=== PATIENT | female | born 1985 | race Caucasian/White ===

== ENCOUNTER 2025-01-27 05:53 | Inpatient (IN) | payer MEDICAID, SELFPAY ==
[2025-01-27] VITALS (13 sets, daily range): BP systolic 88–131; BP diastolic 60–89; PULSE 71–102; RESP 12–22; TEMP 36.5–37.2; O2SAT 94–100; BMI 27.6
--- NOTE | 2025-01-27 06:34 | PD.EDRME ---
Rapid Medical Screening Exam E Arrival date/time: 01/27/25 05:53 This is a 39-year-old female that comes into the emergency room with complaints of abdominal pain, nausea vomiting. Patient states she does not know if she is . Patient writhing in pain and room upon arrival. Patient denies past medical history. I have greeted and performed a focused initial assessment of this patient. Initial appropriate labs ordered at this time. A comprehensive ED assessment and evaluation of the patient and analysis of all test and completion of medical decision making process will be conducted by additional ED provider. Chief Complaint: Abdominal Pain Time Seen by Provider: 01/27/25 06:15 Vital signs: Vital Signs Temperature 98.3 F 01/27/25 06:03 Pulse Rate 93 01/27/25 06:03 Respiratory Rate 18 01/27/25 06:03 Blood Pressure 130/85 H 01/27/25 06:03 Pulse Oximetry (%) 98 01/27/25 06:03 Oxygen Delivery Method Room Air 01/27/25 06:03
--- NOTE | 2025-01-27 06:41 | PD.EDABDPN ---
ED Abdominal Pain RME/HPI General Chief Complaint: Abdominal Pain Stated complaint: ABD PAIN Time seen by provider: 01/27/25 06:15 Arrival date/time: 01/27/25 05:53 Limitations: no limitations RME / HPI RME / HPI narrative: 01/27/25 05:53 This is a 39-year-old female that comes into the emergency room with complaints of abdominal pain, nausea vomiting. Patient states she does not know if she is . Patient writhing in pain and room upon arrival. Patient denies past medical history. I have greeted and performed a focused initial assessment of this patient. Initial appropriate labs ordered at this time. A comprehensive ED assessment and evaluation of the patient and analysis of all test and completion of medical decision making process will be conducted by additional ED provider. DR. LELA AGUIAR ED EVALUATION 39 year old female with no stated medical history presents to the ED for evaluation of abdominal pain beginning at 02:00 AM today and remaining constant since. Described as sharp in sensation that is localized to the right lower quadrant, rating 10/10 in severity. Accompanied by nausea and vomiting. Reportedly was evaluated at [facility] shortly after onset this morning and had labs drawn. However, left against medical advise and came straight here. Patient states she may be . LMP was 3 weeks ago and abnormal for her, duration was 2 weeks. Additionally states she had missed her menses the month before that. . Denies fevers, chills, chest pain, cough, shortness of breath, diarrhea, constipation, or urinary symptoms. Related Data Previous Rx's ?Medication ?Instructions ?Recorded mupirocin calcium 2 % topical cream 1 applicatio topical TID #30 grams 06/06/19 hydrocodone 5 mg-acetaminophen 325 1 tab PO BID PRN pain #4 tabs 10/30/20 mg tablet ibuprofen 800 mg tablet 800 mg PO TID PRN pain #30 tabs 10/30/20 Allergies Allergy/AdvReac Type Severity Reaction Status Date / Time No Known Allergies Allergy Verified 01/27/25 05:55 Review of Systems Review of Systems Systems Reviewed: All systems reviewed, normal except as documented Past Medical History Past Medical History CARDIAC: Negative Congestive Heart Failure RESPIRATORY: Negative Chronic Obstructive Pulmonary Disease (COPD) or Asthma GENITOURINARY: Negative Renal Disease ENDOCRINE: Negative Diabetes Mellitus Type 1 or Diabetes Mellitus Type 2 HEMATOLOGIC: Negative Sickle Cell Disease OTHER HISTORY: Negative Blood Transfusions Social History SMOKING STATUS: Current every day smoker SUBSTANCE USE: does not use ED Exam General Limitations: Present no limitations General appearance: Present alert and other (appears to be in severe pain) Head Head exam: Present atraumatic Eye Eye exam: Present normal appearance, PERRL and EOMI ENT ENT exam: Present normal exam, normal oropharynx and mucous membranes moist Neck Neck exam: Present normal inspection, full ROM and trachea midline Chest Chest inspection: Present normal inspection and symmetric chest wall rise Respiratory Respiratory exam: Present normal lung sounds bilaterally Cardiovascular Cardiovascular exam: Present regular rate, normal rhythm and normal heart sounds Abdominal Exam Abdominal exam: Present soft, tenderness (severe tenderness to palpation in the right lower quadrant with guarding and rebound, no rigidity. ) and normal bowel sounds Extremities Exam Extremities exam: Present normal inspection and full ROM Back Exam Back exam: Present normal inspection and full ROM Neurological Exam Neurological exam: Present alert, oriented X3 and CN II-XII intact Psychiatric Psychiatric exam: Present normal affect and normal mood Skin Skin exam: Present warm, dry, intact and normal color Course Quality Measures none Orders Category Date Time Status CT Screening NOW Care 01/27/25 06:42 Active US OB <= 14 weeks fetus Stat Exams 01/27/25 07:32 Completed US OB transvaginal Stat Exams 01/27/25 08:36 Completed Beta HCG,Quantitative Stat Lab 01/27/25 07:27 Completed Blood Culture (Lab) Stat Lab 01/27/25 08:32 Ordered CBC Stat Lab 01/27/25 06:50 Completed Chlamydia/GC/TV - PCR Stat Lab 01/27/25 Ordered Comprehensive Metabolic Panel Stat Lab 01/27/25 06:50 Completed Drug Screen,Urine Stat Lab 01/27/25 08:01 Completed HCG,Qualitative Serum Stat Lab 01/27/25 06:50 Completed Lipase Stat Lab 01/27/25 06:50 Completed Type and Screen Stat Lab 01/27/25 08:32 Ordered Urinalysis, C/S if Indicated Stat Lab 01/27/25 08:00 Completed Acetaminophen Ivpb [Ofirmev Inj] Med 01/27/25 06:44 Discontinued 1,000 mg in 100 ml IV NOW HYDROmorphone INJ [Dilaudid Inj] Med 01/27/25 08:30 Active 0.5 mg IVP Q30MIN PRN Ondansetron Odt [Zofran Odt] Med 01/27/25 06:31 Discontinued 4 mg PO X1 ONE Piper/Tazo Inj [Zosyn Inj] 4.5 gm Med 01/27/25 08:32 Discontinued Sodium Chloride 0.9% (Pop) [NS 0.9% mini bag] 100 ml IV X1 Sodium Chloride 0.9% 1000 ml [Ns] 1,000 ml Med 01/27/25 06:44 Discontinued IV 999 mls/hr Sodium Chloride 0.9% 1000 ml [Ns] 1,000 ml Med 01/27/25 08:25 Discontinued IV 999 mls/hr fentaNYL INJ [Sublimaze Inj] Med 01/27/25 06:41 Discontinued 75 mcg IVP X1 ONE Reevaluation(s) Reevaluation #1: Patient reports she is still in severe pain, localized to the right lower quadrant. Patient has received multiple doses of pain medication. Per boiler testing technician, the patient was uncooperative with ultrasound due to pain. Discussed the importance of ultrasound to rule out an ectopic . Advise we would give additional pain medication and states she will cooperate. Time: 08:09 Reevaluation #2: Patient reports her pain improved after Diladudid Time: 09:45 Vital Signs Vital signs: Vital Signs Temperature 98.3 F 01/27/25 06:03 Pulse Rate 93 01/27/25 06:03 Respiratory Rate 18 01/27/25 06:03 Blood Pressure 130/85 H 01/27/25 06:03 Pulse Oximetry (%) 98 01/27/25 06:03 Oxygen Delivery Method Room Air 01/27/25 06:03 Pulse ox is 98% on room air which is adequate. Abdominal Pain MDM MDM Narrative MDM Narrative:: Lidia Garcia am scribing for and in the presence of Dr. Tompkins. 0827: I spoke with B[place] from ultrasound regarding ultrasound worksheet findings and reporting exam was limited 2/2 patient complaining of pain. Advised the patient will be given more pain medication and will be reordering 0844: I spoke with OBGYN Dr. Adler as noted below. 0909: I spoke with OBGYN Dr. Adler as noted below. 0952: OBGYN Dr. Adler reports she will be taking the patient to surgery. Patient data External records reviewed:: [facility] previous records (I reviewed ED visit on 04/21/2022 for pyelonephritis ) Clinical information provided by:: patient and spouse Social determinants that could affect healthcare access:: none Patient has the following chronic illnesses:: None reported How is presenting disease/condition affected by chronic disease/condition?: no chronic disease Evaluation data The following diagnostics were reviewed and interpreted by me:: lab results and radiology exam(s) Lab and/or radiology exams considered but not ordered:: None Interpretation Summary: Ordering Physician: Nick Tompkins MD Date of Service: 01/27/25 Procedure(s): US OB <= 14 weeks fetus Accession Number(s): [id number] cc: Romario Mukherjee MD; NO PRIMARY/FAMILY,PHYSICIAN; Nick Tompkins MD~ Examination: Complete OB ultrasound, less than 14 weeks, transabdominal Date and time of exam: January 27, 2025, 0740 hrs. Indications: Right-sided pelvic pain beginning 5 hours ago Technique: Obstetrical ultrasound images less than 14 weeks performed via transabdominal imaging Findings: Limited study, patient uncooperative Uterus 8.9 x 4.1 x 6.0 cm, endometrial stripe 1.3 cm No uterine mass or intrauterine gestation Ovaries obscured by bowel gas. Impression: Limited study. No uterine mass or intrauterine gestation. Ovaries obscured by bowel gas. Dictated By: Romario Mukherjee MD Signed By: <Electronically signed by Romario Mukherjee MD in OV> 01/27/25 0909 Ordering Physician: Nick Tompkins MD Date of Service: 01/27/25 Procedure(s): US OB transvaginal Accession Number(s): [id number] cc: Romario Mukherjee MD; NO PRIMARY/FAMILY,PHYSICIAN; Nick Tompkins MD~ Examination: OB Transvaginal ultrasound of the pelvis, complete Technique: Transvaginal sonographic images pelvis performed using tian scale imaging Exam date and time: January 27, 2025, 0846 hrs. Indications: Severe right-sided pelvic pain beginning 7 hours ago Findings: Uterus 8.5 cm endometrial stripe 0.7 cm, no intrauterine gestation Right ovary 4.8 x 3.5 x 4.5 cm arterial flow Right ectopic , pole corresponding to 6 weeks 4 days gestational age, no cardiac motion Left ovary obscured by bowel gas Impression: Positive for right ectopic . Dictated By: Romario Mukherjee MD Signed By: <Electronically signed by Romario Mukherjee MD in OV> 01/27/25 0916 Medications / Prescriptions Medications or Prescriptions considered but not ordered:: None Medication administrations:: Medication Administration History Hydromorphone HCl (Hydromorphone Inj 2 Mg/Ml Vial) 0.5 mg IVP Q30MIN PRN PRN Reason: PAIN Last Admin: 01/27/25 09:11 Dose: 0.5 mg Documented By: Admin: 01/27/25 08:30 Dose: 0.5 mg Documented By: CHARLIE Discontinued Medications Fentanyl Citrate (Fentanyl Cit Inj 50 Mcg/Ml Amp 2ml) 75 mcg IVP X1 ONE Stop: 01/27/25 06:42 Last Admin: 01/27/25 07:00 Dose: 75 mcg Documented By: CCT Acetaminophen (Ofirmev Inj) 1,000 mg in 100 mls @ 250 mls/hr IV NOW ONE Stop: 01/27/25 07:07 Last Infusion: 01/27/25 07:16 Dose: Infused Documented By: Admin: 01/27/25 06:58 Dose: 250 mls/hr Documented By: CCT Sodium Chloride (Ns) 1,000 mls @ 999 mls/hr IV .Q1H1M ONE Stop: 01/27/25 07:44 Last Infusion: 01/27/25 08:08 Dose: Infused Documented By: Admin: 01/27/25 07:00 Dose: 999 mls/hr Documented By: CCT Sodium Chloride (Ns) 1,000 mls @ 999 mls/hr IV .Q1H1M ONE Stop: 01/27/25 09:25 Last Admin: 01/27/25 08:31 Dose: 999 mls/hr Documented By: CHARLIE Piperacillin Sod/Tazobactam (Sod 4.5 gm/ Sodium Chloride) 100 mls @ 200 mls/hr IV X1 ONE Stop: 01/27/25 09:01 Last Admin: 01/27/25 09:12 Dose: 200 mls/hr Documented By: CHARLIE Ondansetron HCl (Ondansetron Odt 4 Mg Tabrap) 4 mg PO X1 ONE; Protocol Stop: 01/27/25 06:32 Last Admin: 01/27/25 06:58 Dose: 4 mg Documented By: CCT See above Consultations Consultation(s) initiated? (list below): Yes Consultation #1 (Physician, Specialty, Details): I spoke with OBGYN Dr. Adler. Discussed patients PMHx, HPI, ED course, exam findings, labs results. At this time pending US OB transvaginal pending. Time: :44 Consultation #2 (Physician, Specialty, Details): I spoke with OBGYN Dr. Adler. Discussed US images. Will come evaluate the patient in the ED. Time: : Consultation #3 (Physician, Specialty, Details): Dr. Mukherjee called to relay ultrasound findings. Reports there is an ectopic with free fluid, pole, no heart beat. Time: : Diagnosis Differential diagnosis abdominal pain: abdominal pain, acute appendicitis and other (ectopic ) Most likely diagnosis given after review of the tests above:: Ectopic Admission Indicated Admission indicated?: indicated Admission Request Was there a request for admission?: Yes Admission Attestation Admission request attestation: Discussed case with [] from Hospitalist service regarding admission. Discussed patients ED course, exam findings, labs, and radiology results. The Hospitalist [agrees,declines] to accept the patient for admission. Disposition Plan Disposition Plan: Admit Critical Care Time Critical Care Time Critical Care Time: Yes Total Critical Care Time (min.): 60 Attestation: The high probability of sudden, clinically significant deterioration in the patient's condition required the highest level of my preparedness to intervene urgently. The services I provided to this patient were to treat and/or prevent clinically significant deterioration. Services included the following: chart data review, reviewing nursing notes and/or old charts, documentation time, change consultant collaboration regarding findings and treatment options, medication orders and management, direct patient care, vital sign assessments and ordering, interpreting and reviewing diagnostic studies and lab tests. Aggregate critical care time includes only time during which I was engaged in work directly related to the patient's care, as described above, whether at bedside or elsewhere in the Emergency Department. It did not include time spent performing other reported procedures or the services of residents, students, nurses or physician assistants. Discharge Plan Plan Patient Disposition: Admit Acute Care w/in Hospital Discharge Disposition comment: OBGYN Prescriptions/Referrals Prescriptions/Med Rec: No Action ibuprofen 800 mg tablet 800 mg PO TID PRN (Reason: pain) Qty: 30 0RF hydrocodone-acetaminophen 5-325 mg tablet 1 tab PO BID MDD 10 PRN (Reason: pain) Qty: 4 0RF mupirocin calcium 2 % cream 1 applicatio TOPICAL TID Qty: 30 0RF Referrals: No Primary/Family,Physician [Primary Care Provider] - In 1 week Problem List Clinical Impression: Ectopic Patient/Caregiver Discharge Instructions Print Language: Lithuanian Stand Alone Forms: Shanti Award Info., Patient Portal Info Letter
[2025-01-27] MEDS: ONDANSETRON ODT 4 MG TABRAP PO (06:58)
[2025-01-27] MEDS: ACETAMINOPHEN IVPB 1,000 MG/100 ML VIAL 250 MG IV ×2 (06:58→18:28)
[2025-01-27] MEDS: SODIUM CHLORIDE 0.9% 1000 ML 1,000 ML 999 ML IV ×2 (07:00→08:31)
[2025-01-27] MEDS: fentaNYL CIT INJ 50 mCg/ML AMP 2ML 75 MCG IVP (07:00)
[2025-01-27 07:13] LABS: Basophils # (Auto) 0.0 Thou/mm3 (0.0-0.2); Basophils % (Auto) 0 % (0-2.5); Eosinophils # (Auto) 0.0 Thou/mm3 (0.0-0.5); Eosinophils % (Auto) 0 % (0-10); Hematocrit 34.8 % (36.0-46.0); Hemoglobin 12.3 g/dL (12.0-16.0); Immature Granulocytes Auto 0.06 Thou/mm3 (0.00-0.00); Lymphocytes # (Auto) 0.8 Thou/mm3 (1.0-4.8); Lymphocytes % (Auto) 6 % (10-50); Mean Corpuscular HGB Conc 35.3 g/dl (31.0-37.0); Mean Corpuscular Hemoglobin 33.2 pg (25.0-35.0); Mean Corpuscular Volume 94 fL (80-100); Monocytes # (Auto) 0.3 Thou/mm3 (0.0-0.8); Monocytes % (Auto) 2 % (0-12); Neutrophils # (Auto) 13.3 Thou/mm3 (1.8-7.7); Neutrophils % (Auto) 91 % (37-80); Nucleated Red Blood Cell # 0.00 Thou/mm3 (0.00-0.00); Nucleated Red Blood Cell % 0 /100 WBC (0); Platelet Count 218 Thou/mm3 (140-440); RDW Standard Deviation 44.1 fL (36.4-46.3); Red Blood Count 3.71 Miln/mm3 (4.00-5.20); White Blood Count 14.5 Thou/mm3 (3.6-11.0)
[2025-01-27 07:23] LABS: HCG,Qualitative Serum Positive
[2025-01-27 07:28] LABS: Alanine Aminotransferase 20 U/L (10-49); Albumin, Serum 4.6 gm/dL (3.5-5.0); Albumin/Globulin Ratio 1.7 (1.2-2.2); Alkaline Phosphatase 57 U/L (46-116); Anion Gap 12 (7-16); Aspartate Amino Transferase 21 U/L (0-34); BUN/Creatinine Ratio 12 Ratio (12-20); Bilirubin,Total 1.3 mg/dL (0.3-1.2); Blood Urea Nitrogen 16 mg/dL (9-23); Calcium 9.7 mg/dL (8.3-10.6); Calcium (Corrected) 9.7 mg/dL (8.5-10.1); Carbon Dioxide 23.5 mMol/L (20.0-31.0); Chloride 107 mMol/L (98-107); Creatinine (Component) 1.3 mg/dL (0.6-1.3); Globulin 2.7 gm/dL (2.3-3.5); Glucose 126 mg/dL (74-106); Lipase 23 U/L (12-53); Osmolality,Calculated 286 (275-295); Potassium 3.6 mMol/L (3.4-5.1); Sodium 142 mMol/L (136-145); Total Protein 7.3 gm/dL (5.7-8.2); eGFR 54 See Note
--- NOTE | 2025-01-27 07:28 | PC.NURSE ---
Called lab to add Quantitative HCG to labs, per Dr. Tompkins.
--- NOTE | 2025-01-27 07:32 | XR_ITS ---
Examination: Complete OB ultrasound, less than 14 weeks, transabdominal Date and time of exam: January 27, 2025, 0740 hrs. Indications: Right-sided pelvic pain beginning 5 hours ago Technique: Obstetrical ultrasound images less than 14 weeks performed via transabdominal imaging Findings: Limited study, patient uncooperative Uterus 8.9 x 4.1 x 6.0 cm, endometrial stripe 1.3 cm No uterine mass or intrauterine gestation Ovaries obscured by bowel gas. Impression: Limited study. No uterine mass or intrauterine gestation. Ovaries obscured by bowel gas.
[2025-01-27 08:29] LABS: Collection Type, Urine Voided
[2025-01-27] MEDS: HYDROmorphone INJ 2 MG/ML VIAL 0.5 MG IVP ×4 (08:30→12:08)
[2025-01-27 08:33] LABS: Beta HCG,Quantitative 5920 mIU/mL (<5.0)
--- NOTE | 2025-01-27 08:36 | XR_ITS ---
Examination: OB Transvaginal ultrasound of the pelvis, complete Technique: Transvaginal sonographic images pelvis performed using tian scale imaging Exam date and time: January 27, 2025, 0846 hrs. Indications: Severe right-sided pelvic pain beginning 7 hours ago Findings: Uterus 8.5 cm endometrial stripe 0.7 cm, no intrauterine gestation Right ovary 4.8 x 3.5 x 4.5 cm arterial flow Right ectopic , pole corresponding to 6 weeks 4 days gestational age, no cardiac motion Left ovary obscured by bowel gas Impression: Positive for right ectopic .
[2025-01-27 08:47] LABS: Bacteria,Urine Rare; Bilirubin,Urine Negative (Negative); Blood,Urine 3+ (Negative); Culture Indicated,Urine Contaminated; Glucose, Urine Negative (Negative); Ketones,Urine 2+ (Negative); Leukocyte Esterase,Urine Positive (Negative); Nitrite,Urine Positive (Negative); PH,Urine 8.5 (5.0-7.0); Protein,Urine 1+ (Neg - Trace); RBC,Urine 12 /hpf (0-3); Specific Gravity,Urine 1.025 (1.001-1.035); Squamous Epithelial Cell,Urine 14 /hpf (0-5); Urobilinogen,Urine Negative mg/dL (0.0-1.0); WBC,Urine 48 /hpf (0-5)
[2025-01-27 08:50] LABS: Clarity,Urine Turbid (Clear/Hazy); Color,Urine Yellow (Lt Yel-Yel)
[2025-01-27 09:12] LABS: Amphetamine/Methamp Scrn,U Positive (Negative); Barbiturate Screen,Urine Negative (Negative); Benzodiazepines Screen,Urine Negative (Negative); Benzoylecgonine Screen, Ur Negative (Negative); Fentanyl Screen,Urine Positive (Negative); Opiate Screen,Urine Negative (Negative); THC Screen,Urine Negative (Negative)
[2025-01-27] MEDS: PIPER/TAZO INJ 4.5 GM in SODIUM CHLORIDE 0.9% (POP) 100 ML IV (09:12)
--- NOTE | 2025-01-27 10:01 | PD.GYNHP ---
Documentation for date of: 01/27/25 DATA ANALYTICS DEVELOPER - HPI History of Present Illness Reason for admission: pelvic pain History of present illness: Ms. LEONE is a 39 year old female P4 and did not know she was , she came with onset of severe right lower quadrant pain starting at 2 AM this morning to the emergency room. Beta-hCG quant is 5920 and no intrauterine is seen in the ultrasound vaginal, there is possibility of some free fluid around the uterus, the clinical picture and objective findings are consistent with the diagnosis of an ectopic Patient states her last LMP was about 3 weeks ago which lasted about 2 weeks but before that she had missed a period for a month She is not using any contraception She does have a history of chlamydia or gonorrhea about few years ago She does have history of using methamphetamine last used 1 day ago She does smoke about a pack a day she last ate a meal before 2 AM on 01/27/2025 She denies any vaginal bleeding She is passing gas but but does report some nausea and threw up yesterday Denies use of marijuana Review of Systems Review of Systems Systems Reviewed: All systems reviewed, normal except as documented Past Medical History Past Medical History REPRODUCTIVE: Positive Gonorrhea (may be or chlamydia in the past) Family History OTHER FAMILY HX: does not remember Surgical History OTHER SURGICAL HX: denies Social History SMOKING STATUS: Light (< 1 pack/day) SUBSTANCE USE: methamphetamine (used yesterday) Meds Home Medications and Allergies Allergies Allergy/AdvReac Type Severity Reaction Status Date / Time No Known Allergies Allergy Verified 01/27/25 05:55 Exam - DATA ANALYTICS DEVELOPER Vital Signs Temp Pulse Resp BP Pulse Ox O2 Del Method 98.5 F 75 22 H 123/89 H 100 Room Air 01/27/25 08:31 01/27/25 08:31 01/27/25 08:31 01/27/25 08:31 01/27/25 08:31 01/27/25 08:31 Narrative Exam Patient is alert oriented she feels thirsty, she was able to comprehend my explanation for her symptoms and also understand the ultrasound findings as I explained them to her She is alert x 3 oriented, respiratory rate is 22 chest clear, heart rate of 75 Abdomen minimal tenderness in right lower quadrant no guarding or rebound, bili patient did get some pain medication IV so these findings may be altered due to the pain medication Bowel sounds are present Pelvic exam is deferred to the OR per patient's request Constitutional Constitutional: mild distress Routine Respiratory Exam Respiratory: Present chest non-tender, lungs clear, normal breath sounds and CTA bilaterally Routine Cardiovascular Exam Cardiovascular: Present RRR Routine Abdominal Exam Abdominal: Present soft, normoactive bowel sounds and tenderness Comments: mild RLQ, no guarding or rebound Routine Extremities Exam Extremities: Present full ROM, pulses intact and normal capillary refill Routine Skin Exam Skin: Present intact and normal turgor Routine Neurological Exam Neurological: Present alert, oriented X3, normal reflexes and normal speech Routine Psychiatric Exam Psychiatric: Present normal affect and cooperative DATA ANALYTICS DEVELOPER - Results Labs 01/27/25 06:50 01/27/25 06:50 Labs: Short CBC 01/27/25 Range/Units 06:50 WBC 14.5 H (3.6-11.0) Thou/mm3 Hgb 12.3 (12.0-16.0) g/dL Hct 34.8 L (36.0-46.0) % Plt Count 218 (140-440) Thou/mm3 BMP 01/27/25 06:50 Sodium 142 Potassium 3.6 Chloride 107 Carbon Dioxide 23.5 BUN 16 Creatinine 1.3 Glucose 126 H Calcium 9.7 Liver Function 01/27/25 Range/Units 06:50 Total Bilirubin 1.3 H (0.3-1.2) mg/dL AST 21 (0-34) U/L ALT 20 (10-49) U/L Alkaline Phosphatase 57 (46-116) U/L Albumin 4.6 (3.5-5.0) gm/dL Urine 01/27/25 Range/Units 08:00 Urine Color Yellow (Lt Yel-Yel) Urine Clarity Turbid A (Clear/Hazy) Urine pH 8.5 H (5.0-7.0) Ur Specific [place] 1.025 (1.001-1.035) Urine Protein 1+ A (Neg - Trace) Urine Glucose (UA) Negative (Negative) Impressions Impression: [facility] [address] [place] [address] [facility] Report Signed Patient: CHARLINE LEONE Record#: [id number] Birthdate: 1985 Age/Sex: 39 / F Location: [facility] Attending Dr: Ordering Physician: Nick Tompkins MD Date of Service: 01/27/25 Procedure(s): US OB transvaginal Accession Number(s): [id number] cc: Romario Mukherjee MD; NO PRIMARY/FAMILY,PHYSICIAN; Nick Tompkins MD~ Examination: OB Transvaginal ultrasound of the pelvis, complete Technique: Transvaginal sonographic images pelvis performed using tian scale imaging Exam date and time: January 27, 2025, 0846 hrs. Indications: Severe right-sided pelvic pain beginning 7 hours ago Findings: Uterus 8.5 cm endometrial stripe 0.7 cm, no intrauterine gestation Right ovary 4.8 x 3.5 x 4.5 cm arterial flow Right ectopic , pole corresponding to 6 weeks 4 days gestational age, no cardiac motion Left ovary obscured by bowel gas Impression: Positive for right ectopic . Dictated By: Romario Mukherjee MD Signed By: <Electronically signed by Romario Mukherjee MD in OV> 01/27/25915 DD/ 4 TD/TT: 01/27/25914 Want Ad Supervisor: CRYSTAL Assessment and Plan Assessment and plan (1) Ectopic : Status: Acute (2) Substance abuse affecting , antepartum: Status: Acute (3) Abdominal pain, RLQ: Status: Acute (4) Smoker: Status: Acute Additional Assessment & Plan Additional Plan: To take the patient to the operating room for laparoscopy possible laparotomy risk benefits and options of surgery explained her risk to include risk of infection bleeding possible injury to the surrounding organs in the abdomen including intestines bladder uterus tubes ovaries ureter and not limited to these could be nerves vessels possible need for blood transfusion if there is excessive bleeding and also sometimes cannot really find the ectopic which may be seen on imaging but an actual surgery cannot find the location and in that case we will make an effort to try to find a location not found she may need end up needing medication like methotrexate she does not have a doctor with whom she can follow-up but that would be the only option at that point in case there is a complication or cannot see properly on laparoscopy we may need to do a laparotomy all the questions from the patient and the family her significant on the were answered and patient to be kept n.p.o. and will be taken to the OR as soon as it is arranged. Quality Measures Quality Measures none
--- NOTE | 2025-01-27 11:46 | PC.NURSE ---
at bedside explained to pt all risks and benefits of the surgery r/t ectopic pt verbalized understanding.
--- NOTE | 2025-01-27 12:24 | PC.NURSE ---
Report called to OR and pt was transferred to OR
--- NOTE | 2025-01-27 14:38 | ESOP_ITS ---
Operative Note - [employer]DER Procedure Date of procedure: 01/27/25 Procedure Performed: diagnostic laparoscopy and minilaparotomy with R salpingectomy with removal of R ectopic Indication: R ectopic Cornual Pre-Op diagnosis: RLQ pain and R ectopic Post-Op diagnosis: R cornual ectopic / just started rupturing intraoperatively Size 4x4 cm and no hemoperitoneum Anesthesia type: General Procedure description: a diagnostic laparoscopy was done . Patient was brought to the OR after an informed consent. She was in dorsolithotomy position modified for laparoscopy. She received general anesthesia. She was prepped and draped in the usual sterile fashion. A pelvic exam was done after a timeout. Show the uterus deviated to the left side cervix vagina were normal there was no vaginal bleeding. Patient had had her bladder straight catheterized. A kroner's intrauterine manipulator was placed through the cervical os into the uterine cavity balloon inflated left in situ, this is done after placing a speculum in the posterior vagina and holding the anterior lip of the cervix with a single-tooth tenaculum. Gloves are then changed. And then with a 5 mm incision on the umbilicus , a direct trocar entry is made with the laparoscope into the abdomen without any trauma the trocars removed the laparoscope inserted into the trocar survey of the anatomy is done there is lot of bowel and for some reason even though the pressure in the laparoscopic machine is showing 15 mm the there is not adequate distention to perform's laparoscopic surgery adequately however we are able to see both the right tube and the ovaries and on the right tube in the cornual there is this big blue bulbous looking ectopic which is not ruptured its 4 x 4 cm right at the cornual and so decision is to made to proceed with open mini laparotomy as laparoscopy will not be possible due to improper distention of the peritoneal cavity. The umbilical incision is closed with 4-0 Monocryl after removing the trocar and deflating the abdomen. A fanning style 2-1/2 inch incision is made and carried down from skin subcutaneous tissue to rectus sheath which is incised transversely from underlying muscles peritoneal cavity entered atraumatically With the help of the kroner's intrauterine manipulator right fallopian tube with the ectopic is brought into the surgical incision opening and the tube with ectopic is this starts rupturing right before eyes clamps were placed on both ends of the ectopic and to contain the bleeding and the ectopic material is scooped out from the ruptured ectopic and this is to allow for proper removal of the tube because otherwise the tube is very thick and proper sealing and hemostasis would be difficult with Endo seal. Once that is done 0-0 Vicryl is used to hemostatically control the bleeding on the uterine and and then the tube was removed with the help of the Endo seal all the way till the fimbria as this tube is not salvageable. The defect from the ectopic extends onto the lateral end of the uterine fundus and that is closed using 0 Vicryl suture as well hemostasis is obtained. The left tube and ovary are normal the right ovary is normal looking as well. Procedure then completed. Abdomen closed with peritoneal closure and fascial closure done with 0 Vicryl. Subcutaneous tissue with 3-0 plain and skin approximated with 4-0 Monocryl. Prineo dressing applied. Kroner's intrauterine manipulator is deflated and removed. Counts are correct Patient removed to PACU in stable condition. Specimen: right tube (with ectopic ) Estimated blood loss (ml): 30 Findings: R Cornual ectopic , barely started rupturing intraoperatively Complications: none Narrative: see procedure Surgical staff Operation Date: 01/27/25 14:15 Case Staff Anesthesiologist: Harshal Lima RNspanish interpreter/translator: Paris Bennett Diagnosis Discharge Diagnosis (1) S/P laparotomy: Status: Acute Problem details: s/p laparotomy and R salpingectomy for R cornual ectopic Problem List Completed Was Problem List Reviewed/Reconciled?: Yes
--- NOTE | 2025-01-27 14:42 | SUR.PHASEI ---
1412 patient is s/p laparoscopic, converted to open ectopic preganancy surgery, prineo x2 to abdomen, no bleeding noted, report received from John MORALES and Dr. Lima. 1442 patient completed recovery, waiting for med surg bded assignment.
--- NOTE | 2025-01-27 15:25 | SUR.PHASEI ---
1525 patient is awake, alert, breathing unlabored, lower abdomen prineo site had small amount of oozing, Dr. Adler was notified, dressing with ABD Pad, 4x4 gauze and medipore applied, no active bleeding noted at this time, report given to Jaqueline MORALES, patient transferred to room 382. Dentures placed back on patient, all belongings sent with patient including purse, cellphone and cleaning custodian.
[2025-01-27] MEDS: ceFAZolin/D5W 1 GM IVPB 1 GM/50 ML BAG IV (16:16)
[2025-01-27] MEDS: DEXTROSE 5%-0.45% NS 1,000 ML 100 ML IV (16:16)
[2025-01-27] MEDS: KETOROLAC INJ 30 MG/ML VIAL 15 MG IVP (17:57)
[2025-01-27] MEDS: DOCUSATE SOD 100 MG CAPSULE PO (21:01)
[2025-01-27] MEDS: DOXYCYCLINE INJ 100 MG in SODIUM CHLORIDE 0.9% (POP) 100 ML IV (21:01)
[2025-01-28] VITALS (9 sets, daily range): BP systolic 82–97; BP diastolic 52–70; PULSE 83–105; RESP 16–99; TEMP 36.2–37.2; O2SAT 93–99
[2025-01-28] MEDS: ACETAMINOPHEN IVPB 1,000 MG/100 ML VIAL 250 MG IV (00:34)
[2025-01-28] MEDS: SODIUM CHLORIDE 0.9% 1000 ML 1,000 ML 999 ML IV (04:27)
--- NOTE | 2025-01-28 04:30 | PC.NURSE ---
Patient blood pressure at 67/43. Dr. Adler called via phone and ordered a 1L NS bolus and a stat CBC. Patient placed in trendelenburg, will recheck blood pressure after fluid bolus.
[2025-01-28 05:41] LABS: Specific Gravity,Urine <= 1.005 (1.001-1.035)
[2025-01-28 05:46] LABS: Basophils # (Auto) 0.0 Thou/mm3 (0.0-0.2); Basophils % (Auto) 0 % (0-2.5); Eosinophils # (Auto) 0.0 Thou/mm3 (0.0-0.5); Eosinophils % (Auto) 0 % (0-10); Hematocrit 29.8 % (36.0-46.0); Hemoglobin 10.1 g/dL (12.0-16.0); Immature Granulocytes Auto 0.20 Thou/mm3 (0.00-0.00); Lymphocytes # (Auto) 0.6 Thou/mm3 (1.0-4.8); Lymphocytes % (Auto) 4 % (10-50); Mean Corpuscular HGB Conc 33.9 g/dl (31.0-37.0); Mean Corpuscular Hemoglobin 34.0 pg (25.0-35.0); Mean Corpuscular Volume 100 fL (80-100); Monocytes # (Auto) 0.5 Thou/mm3 (0.0-0.8); Monocytes % (Auto) 4 % (0-12); Neutrophils # (Auto) 12.6 Thou/mm3 (1.8-7.7); Neutrophils % (Auto) 91 % (37-80); Nucleated Red Blood Cell # 0.00 Thou/mm3 (0.00-0.00); Nucleated Red Blood Cell % 0 /100 WBC (0); Platelet Count 100 Thou/mm3 (140-440); RDW Standard Deviation 48.8 fL (36.4-46.3); Red Blood Count 2.97 Miln/mm3 (4.00-5.20); White Blood Count 13.9 Thou/mm3 (3.6-11.0)
[2025-01-28] MEDS: DEXTROSE 5%-0.45% NS 1,000 ML 100 ML IV (05:56)
--- NOTE | 2025-01-28 06:51 | PD.GYNPROG ---
Documentation for date of: 01/28/25 INVENTORY CONTROL/SHIPPING RECEIVING Subjective Subjective Interval history: Ms. LEONE is a 39 year old female P4 and did not know she was , she came with onset of severe right lower quadrant pain starting at 2 AM this morning to the emergency room. Beta-hCG quant is 5920 and no intrauterine is seen in the ultrasound vaginal, there is possibility of some free fluid around the uterus, the clinical picture and objective findings are consistent with the diagnosis of an ectopic Patient states her last LMP was about 3 weeks ago which lasted about 2 weeks but before that she had missed a period for a month She is not using any contraception She does have a history of chlamydia or gonorrhea about few years ago She does have history of using methamphetamine last used 1 day ago She does smoke about a pack a day she last ate a meal before 2 AM on 01/27/2025 She denies any vaginal bleeding She is passing gas but but does report some nausea and threw up yesterday Denies use of marijuana she was fine after her surgery yesterday but this morning after going to the rest room she had low BP and HR of 105 Her stat Hb is 10-1 and platelets are decreased to 100 She did have a cornual ectopic and that site of the ectopic thereby was in a very vascular area and so possibility of a bleed from that area is possible . Also it is possible she had a vasovagal attack after going to the rest room or ?withdrawal Exam Vital Signs Temp Pulse Resp BP Pulse Ox O2 Del Method 98.9 F 105 H 16 88/70 L 98 Room Air 01/28/25 04:00 01/28/25 06:38 01/28/25 06:38 01/28/25 05:30 01/28/25 04:00 01/28/25 04:00 Narrative Exam I examined the patient she is alertx3 , not diaphoretic and did not receive Toradol or Dilaudid per the RN oriented and I discussed with her the possibility of the bleed from the surgical site and maybe need to go back to OR Her BP is improving Plan is to keep her NPO and also repeat CBC at 9 am and a stat pelvic US is ordered . One unit Type and cross is ordered as well Routine Respiratory Exam Respiratory: Present chest non-tender, lungs clear, normal breath sounds, no resp distress and CTA bilaterally Routine Cardiovascular Exam Cardiovascular: Present RRR and tachycardia Routine Abdominal Exam Abdominal: Present soft and normoactive bowel sounds Comments: dressing is dry and she has no TTP Routine Skin Exam Skin: Present intact and normal turgor Routine Neurological Exam Neurological: Present alert, oriented X3 and normal speech Urinary Catheter Management Cath placed during this visit: no INVENTORY CONTROL/SHIPPING RECEIVING - PN: Obj Data Labs 01/28/25 05:06 01/27/25 06:50 Labs: Laboratory Results - last 24 hr 01/27/25 01/27/25 01/27/25 06:50 07:27 08:00 WBC 14.5 H RBC 3.71 L Hgb 12.3 Hct 34.8 L MCV 94 MCH 33.2 MCHC 35.3 RDW Std Deviation 44.1 Plt Count 218 Neut % (Auto) 91 H Lymph % (Auto) 6 L [place] % (Auto) 2 Eos % (Auto) 0 Baso % (Auto) 0 Neut # (Auto) 13.3 H Lymph # (Auto) 0.8 L [place] # (Auto) 0.3 Eos # (Auto) 0.0 Baso # (Auto) 0.0 Immature Gran # (Auto) 0.06 H Absolute Nucleated RBC 0.00 Immature Gran % 0 Nucleated RBC % 0 Sodium 142 Potassium 3.6 Chloride 107 Carbon Dioxide 23.5 Anion Gap 12 BUN 16 Creatinine 1.3 Estim Creat Clear Calc Not Performed. eGFR 54 L BUN/Creatinine Ratio 12 Glucose 126 H Calculated Osmolality 286 Calcium 9.7 Corrected Calcium 9.7 Total Bilirubin 1.3 H AST 21 ALT 20 Alkaline Phosphatase 57 Total Protein 7.3 Albumin 4.6 Globulin 2.7 Albumin/Globulin Ratio 1.7 Lipase 23 HCG, Qual Positive Beta HCG, Quant 5920 Ur Collection Type Voided Urine Color Yellow Urine Clarity Turbid A Urine pH 8.5 H Ur Specific [place] 1.025 Urine Protein 1+ A Urine Glucose (UA) Negative Urine Ketones 2+ A Urine Blood 3+ A Urine Nitrite Positive Urine Bilirubin Negative Urine Urobilinogen (Auto) Negative Ur Leukocyte Esterase Positive Urine RBC 12 H Urine WBC 48 H Ur Squamous Epith Cells 14 H Urine Bacteria Rare Ur Culture Indicated? Contaminated Urine Opiates Screen Urine Fentanyl Screen Ur Barbiturates Screen U Amphetamin/Meth Scrn U Benzodiazepines Scrn U Cocaine Metab Screen U Marijuana (THC) Screen Blood Type Antibody Screen Blood Bank Wristband ID 01/27/25 01/27/25 01/28/25 08:01 09:36 05:06 WBC 13.9 H RBC 2.97 L Hgb 10.1 L D Hct 29.8 L MCV 100 MCH 34.0 MCHC 33.9 RDW Std Deviation 48.8 H Plt Count 100 L D Neut % (Auto) 91 H Lymph % (Auto) 4 L [place] % (Auto) 4 Eos % (Auto) 0 Baso % (Auto) 0 Neut # (Auto) 12.6 H Lymph # (Auto) 0.6 L [place] # (Auto) 0.5 Eos # (Auto) 0.0 Baso # (Auto) 0.0 Immature Gran # (Auto) 0.20 H Absolute Nucleated RBC 0.00 Immature Gran % 1 H Nucleated RBC % 0 Sodium Potassium Chloride Carbon Dioxide Anion Gap BUN Creatinine Estim Creat Clear Calc eGFR BUN/Creatinine Ratio Glucose Calculated Osmolality Calcium Corrected Calcium Total Bilirubin AST ALT Alkaline Phosphatase Total Protein Albumin Globulin Albumin/Globulin Ratio Lipase HCG, Qual Beta HCG, Quant Ur Collection Type Urine Color Urine Clarity Urine pH Ur Specific [place] Urine Protein Urine Glucose (UA) Urine Ketones Urine Blood Urine Nitrite Urine Bilirubin Urine Urobilinogen (Auto) Ur Leukocyte Esterase Urine RBC Urine WBC Ur Squamous Epith Cells Urine Bacteria Ur Culture Indicated? Urine Opiates Screen Negative Urine Fentanyl Screen Positive A Ur Barbiturates Screen Negative U Amphetamin/Meth Scrn Positive A U Benzodiazepines Scrn Negative U Cocaine Metab Screen Negative U Marijuana (THC) Screen Negative Blood Type O Positive Antibody Screen NEGATIVE Blood Bank Wristband ID Yes 01/28/25 05:14 WBC RBC Hgb Hct MCV MCH MCHC RDW Std Deviation Plt Count Neut % (Auto) Lymph % (Auto) [place] % (Auto) Eos % (Auto) Baso % (Auto) Neut # (Auto) Lymph # (Auto) [place] # (Auto) Eos # (Auto) Baso # (Auto) Immature Gran # (Auto) Absolute Nucleated RBC Immature Gran % Nucleated RBC % Sodium Potassium Chloride Carbon Dioxide Anion Gap BUN Creatinine Estim Creat Clear Calc eGFR BUN/Creatinine Ratio Glucose Calculated Osmolality Calcium Corrected Calcium Total Bilirubin AST ALT Alkaline Phosphatase Total Protein Albumin Globulin Albumin/Globulin Ratio Lipase HCG, Qual Beta HCG, Quant Ur Collection Type Urine Color Urine Clarity Urine pH Ur Specific [place] <= 1.005 Urine Protein Urine Glucose (UA) Urine Ketones Urine Blood Urine Nitrite Urine Bilirubin Urine Urobilinogen (Auto) Ur Leukocyte Esterase Urine RBC Urine WBC Ur Squamous Epith Cells Urine Bacteria Ur Culture Indicated? Urine Opiates Screen Urine Fentanyl Screen Ur Barbiturates Screen U Amphetamin/Meth Scrn U Benzodiazepines Scrn U Cocaine Metab Screen U Marijuana (THC) Screen Blood Type Antibody Screen Blood Bank Wristband ID Impressions Impression: Post op s/p laparotomy for R cornual ectopic and now with low ABG Interpretation Additional comments: ordered anothe CBC at 9 am and also a pelvic US stat now INVENTORY CONTROL/SHIPPING RECEIVING - A/P Assessment and plan (1) S/P laparotomy: Problem details: s/p laparotomy and R salpingectomy for R cornual ectopic Status: Acute Assessment and plan: concern for low BP and Tachycardia and postop bleeding Will be watching closely . Patient is NPO now and waiting on second CBC and also pelvic Ultrasound Postoperative Procedures: Procedures Operation Date: 01/27/25 14:15 Actual Procedure Side Surgeon p LAPAROTOMY Sallie Adler MD Time Spent With Patient Time: Total time spent is greater than 50% in coordination of care (as documented) at patient's floor/unit and/or counseling patient:
--- NOTE | 2025-01-28 08:58 | XR_ITS ---
Examination: CT abdomen and pelvis without contrast. Coronal 3-D reconstructions. Sagittal 2-D reconstructions. Date and time of exam:January 28, 2025 1156 hours Comparison April 21, 2022 INDICATIONS: Post ectopic surgery July 31, 2024 with onset pelvic pain beginning 2 days ago CTDI: vol (mGy): 7.27 DLP: (mGycm): 412 Technique: Axial images of the abdomen have been obtained, 3 mm slice thickness Intravenous contrast material has not been administered. Low dose protocols were performed. One or more of the following dose reduction techniques were used; automated exposure control, adjustment of the mA and/or KV according to patient size, use of iterative reconstruction technique. Findings: Right base pneumonia with small right pleural effusion Pneumoperitoneum No focal liver or splenic lesion. No gallstones. No pancreatic or adrenal mass. 2 mm lower pole right renal calculus Moderate right hydronephrosis, 3 mm distal right ureterovesical junction calculus No bowel obstruction No pericecal inflammatory change Anteverted uterus Mild free fluid in the pelvis Urinary bladder intact IMPRESSION: Moderate right hydronephrosis secondary to 3 mm distal right ureterovesical junction calculus Mild free fluid in the pelvis, consider pelvic sonography follow-up
--- NOTE | 2025-01-28 11:52 | PC.NURSE ---
Patient to CT via w/c in stable condition.
--- NOTE | 2025-01-28 12:08 | PC.NURSE ---
Pt back from CT to room via w/c in stable condition.
[2025-01-28] MEDS: PANTOPRAZOLE 40 MG TABLET PO (14:17)
[2025-01-28] MEDS: AZITHROMYCIN 250 MG TABLET 500 MG PO (14:17)
[2025-01-28] MEDS: DOCUSATE SOD 100 MG CAPSULE PO (14:17)
[2025-01-28] MEDS: KETOROLAC INJ 30 MG/ML VIAL IVP (14:18)
[2025-01-28] MEDS: LACTULOSE SYRUP 20 GM/30 ML UDC 10 GM PO ×2 (14:18→21:54)
--- NOTE | 2025-01-28 17:04 | PC.NURSE ---
Patient ambulating hallway with daughter at side.
--- NOTE | 2025-01-28 21:48 | ESPR_ITS ---
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 There was initial concern about ongoing intraperitoneal bleeding, but her blood counts have remained stable with a hemoglobin of 10.1. The patient underwent a CT scan earlier today which showed mild free fluid in the pelvis but no evidence of active bleeding. The scan also revealed a right base pneumonia with a small right pleural effusion, pneumoperitoneum, and mild right hydronephrosis with a 3-millimeter distal right ureter vesicular calculus. Dr. Adler, who performed the surgery, was concerned about potential ongoing bleeding due to the ectopic 's location at the highly vascular junction of the fallopian tube and uterus. However, the surgical repair appears to be intact with no signs of continued bleeding. The patient has not yet had a bowel movement but has been able to urinate. She reports passing gas, which is a positive sign for returning bowel function. Mela does not currently have an OB doctor in [facility] and will need follow-up care to monitor her healing progress and hormone levels until they return to zero. The surgical incision appears to be healing well, with a preneurotape dressing in place to prevent infection. ROS: Gastrointestinal: Positive for passing gas. Negative for bowel movement. Genitourinary: Positive for urination. Exam Vital Signs Temp Pulse Resp BP Pulse Ox O2 Del Method 97.2 F 95 16 92/59 L 99 Room Air 01/28/25 20:00 01/28/25 20:00 01/28/25 20:00 01/28/25 20:00 01/28/25 20:00 01/28/25 20:00 Narrative Exam - Abdomen: Dressing removed from surgical site. Incision appears to be healing well. 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 AND HOUSING INSPECTOR - PN: Obj Data Labs 01/28/25 05:06 01/27/25 06:50 Labs: Laboratory Results - last 24 hr 01/28/25 01/28/25 05:06 05:14 WBC 13.9 H RBC 2.97 L Hgb 10.1 L D Hct 29.8 L MCV 100 MCH 34.0 MCHC 33.9 RDW Std Deviation 48.8 H Plt Count 100 L D Neut % (Auto) 91 H Lymph % (Auto) 4 L [place] % (Auto) 4 Eos % (Auto) 0 Baso % (Auto) 0 Neut # (Auto) 12.6 H Lymph # (Auto) 0.6 L [place] # (Auto) 0.5 Eos # (Auto) 0.0 Baso # (Auto) 0.0 Immature Gran # (Auto) 0.20 H Absolute Nucleated RBC 0.00 Immature Gran % 1 H Nucleated RBC % 0 Ur Specific [place] <= 1.005 WEATHERIZATION AND HOUSING INSPECTOR - A/P Assessment and plan (1) S/P laparotomy: Status: Acute Assessment and plan: Status post laparotomy for right cornual ectopic Assessment: - Laparotomy performed by Dr. Adler for right cornual ectopic - Significant bleeding during surgery due to highly vascular cornual region - Initial concern for ongoing intraperitoneal bleeding - Hemoglobin stable at 10.1 g/dL - CT scan shows mild free fluid in pelvis, no evidence of active bleeding - Portion of damaged fallopian tube removed, entire tube not excised Plan: - Remove surgical dressing - Advance diet as tolerated - Ambulate tomorrow morning - Monitor for passage of flatus and bowel movement prior to discharge - Discharge home tomorrow if stable - Schedule follow-up appointment at [facility] office for: ? Wound check ? Removal of Prineo tape in 2 weeks ? Serial ?-hCG monitoring until levels return to zero - Provide discharge instructions and clinician contact information - Discuss option for future laparoscopic salpingectomy if desired by patient Right basal pneumonia with small right pleural effusion Assessment: - CT scan revealed right basal pneumonia with small right pleural effusion - Likely postoperative complication Plan: - Monitor respiratory status - Reassess on follow-up Mild right hydronephrosis with 3 mm distal right ureteral vesicular calculus Assessment: - Incidental CT scan finding - Likely unrelated to primary surgical issue Plan: - Inform patient of incidental finding - Recommend follow-up with primary care or urology for further evaluation and management Postoperative Procedures: Procedures Operation Date: 01/27/25 14:15 Actual Procedure Side Surgeon p LAPAROTOMY Sallie Adler MD Time Spent With Patient Time: Total time spent is greater than 50% in coordination of care (as documented) at patient's floor/unit and/or counseling patient: Time with patient: less than 15 minutes
[2025-01-28] MEDS: ACETAMINOPHEN 500 MG TABLET PO (22:07)
[2025-01-28] MEDS: KETOROLAC INJ 30 MG/ML VIAL 15 MG IVP (23:35)
[2025-01-29] VITALS: BP 92/62; PULSE 99; RESP 17; TEMP 36.7; O2SAT 96
[2025-01-29 04:00] VITALS: BP 84/52; PULSE 85; RESP 15; TEMP 36.3; O2SAT 95
--- NOTE | 2025-01-29 04:14 | PC.NURSE ---
Dr. Rosado made aware of patient's BP 87/55 and HR 75. MD ordered NS 1 L bolus. Order noted and will be carried out.
[2025-01-29] MEDS: SODIUM CHLORIDE 0.9% 1000 ML 1,000 ML 999 ML IV (04:33)
[2025-01-29] MEDS: KETOROLAC INJ 30 MG/ML VIAL 15 MG IVP (05:48)
[2025-01-29] MEDS: LACTULOSE SYRUP 20 GM/30 ML UDC 10 GM PO (06:01)
[2025-01-29 06:16] LABS: Basophils # (Auto) 0.0 Thou/mm3 (0.0-0.2); Basophils % (Auto) 0 % (0-2.5); Eosinophils # (Auto) 0.4 Thou/mm3 (0.0-0.5); Eosinophils % (Auto) 4 % (0-10); Hematocrit 29.7 % (36.0-46.0); Hemoglobin 10.2 g/dL (12.0-16.0); Immature Granulocytes Auto 0.75 Thou/mm3 (0.00-0.00); Lymphocytes # (Auto) 0.8 Thou/mm3 (1.0-4.8); Lymphocytes % (Auto) 8 % (10-50); Mean Corpuscular HGB Conc 34.3 g/dl (31.0-37.0); Mean Corpuscular Hemoglobin 33.3 pg (25.0-35.0); Mean Corpuscular Volume 97 fL (80-100); Monocytes # (Auto) 0.2 Thou/mm3 (0.0-0.8); Monocytes % (Auto) 2 % (0-12); Neutrophils # (Auto) 7.8 Thou/mm3 (1.8-7.7); Neutrophils % (Auto) 78 % (37-80); Nucleated Red Blood Cell # 0.00 Thou/mm3 (0.00-0.00); Nucleated Red Blood Cell % 0 /100 WBC (0); Platelet Count 103 Thou/mm3 (140-440); RDW Standard Deviation 48.1 fL (36.4-46.3); Red Blood Count 3.06 Miln/mm3 (4.00-5.20); White Blood Count 10.0 Thou/mm3 (3.6-11.0)
[2025-01-29 06:38] LABS: Alanine Aminotransferase 34 U/L (10-49); Albumin, Serum 3.1 gm/dL (3.5-5.0); Albumin/Globulin Ratio 1.6 (1.2-2.2); Alkaline Phosphatase 65 U/L (46-116); Anion Gap 10 (7-16); Aspartate Amino Transferase 52 U/L (0-34); BUN/Creatinine Ratio 11 Ratio (12-20); Beta HCG,Quantitative 907 mIU/mL (<5.0); Bilirubin,Total 0.4 mg/dL (0.3-1.2); Blood Urea Nitrogen 18 mg/dL (9-23); Calcium 7.9 mg/dL (8.3-10.6); Calcium (Corrected) 8.6 mg/dL (8.5-10.1); Carbon Dioxide 20.5 mMol/L (20.0-31.0); Chloride 112 mMol/L (98-107); Creatinine (Component) 1.6 mg/dL (0.6-1.3); Estimated Creatinine Clearance 48.8 mL/min (>60); Globulin 1.9 gm/dL (2.3-3.5); Glucose 106 mg/dL (74-106); Osmolality,Calculated 285 (275-295); Potassium 3.5 mMol/L (3.4-5.1); Sodium 142 mMol/L (136-145); Total Protein 5.0 gm/dL (5.7-8.2); eGFR 42 See Note
[2025-01-29 08:00] VITALS: BP 89/68; PULSE 72; RESP 18; TEMP 36.2; O2SAT 95
[2025-01-29] MEDS: AZITHROMYCIN 250 MG TABLET 500 MG PO (08:50)
[2025-01-29] MEDS: PANTOPRAZOLE 40 MG TABLET PO (08:50)
[2025-01-29] MEDS: DOCUSATE SOD 100 MG CAPSULE PO (08:51)
--- NOTE | 2025-01-29 09:02 | ESDS_ITS ---
Planned Discharge Date 01/29/25 DS: Providers Provider Date of admission: 01/28/25 13:21 Primary care physician: Physician No Primary/Family Admitting Provider: Sallie Adler MD Attending Provider on Admission: Thien Fernández MD Attending Provider on DC: Thien Fernández MD Discharging Provider: Thien Fernández MD DS: Diagnosis Problem List Completed Was Problem List Reviewed/Reconciled?: Yes Hospital Course Hospital Course Hospital course: Mela Moraes, a 39-year-old female, is currently admitted to the Medical- Surgical Unit following a laparotomy for a right cornual ectopic performed by the on-call physician. There was initial concern about ongoing intraperitoneal bleeding, but her blood counts have remained stable with a hemoglobin of 10.1. The patient underwent a CT scan earlier today which showed mild free fluid in the pelvis but no evidence of active bleeding. The scan also revealed a right base pneumonia with a small right pleural effusion, pneumoperitoneum, and mild right hydronephrosis with a 3-millimeter distal right ureter vesicular calculus. Dr. Adler, who performed the surgery, was concerned about potential ongoing bleeding due to the ectopic 's location at the highly vascular junction of the fallopian tube and uterus. However, the surgical repair appears to be intact with no signs of continued bleeding. The patient has not yet had a bowel movement but has been able to urinate. She reports passing gas, which is a positive sign for returning bowel function. Mela does not currently have an OB doctor in [facility] and will need follow-up care to monitor her healing progress and hormone levels until they return to zero. The surgical incision appears to be healing well, with a preneurotape dressing in place to prevent infection. CT scan shows no internal bleeding. An incidental finding of a 3 mm nonobstructing renal calculus. And pneumonia. On postop day #2 patient was voiding and ambulating and tolerating a regular diet and passing flatus. She had adequate pain relief with hydrocodone. She denied any chest pain palpitation shortness of breath cough or fever. 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 Routine Extremities Exam Comments: Nontender or edema Discharge Plan Plan Patient Disposition: HOME (Self Care) Patient condition on transfer: Stable Prescriptions/Referrals Prescriptions/Med Rec: New azithromycin 250 mg Tablet 500 mg PO QDAY 7 Days Qty: 14 0RF hydrocodone-acetaminophen 5-325 mg Tablet 1 tab PO Q6HR MDD 4 PRN (Reason: Pain Scale 7-10 (Severe) 5 Days Qty: 20 0RF docusate sodium 100 mg Capsule 100 mg PO BID 30 Days Qty: 60 0RF Referrals: Akil Rosado MD [Physician] - No Primary/Family,Physician [Primary Care Provider] - Patient/Caregiver Discharge Instructions Discharge Activity: activity as tolerated Other Discharge Activity Instructions:: Follow up with [facility] within 1 week. Education Materials: Preventing Surgical Site Infections Print Language: Bahraini Stand Alone Forms: Shanti Award Info., Patient Portal Info Letter, Work/Release Restrictions Discharge Order Discharge Orders: Discharge (Routine); Ordered 01/29/25 Ordered By: Thien Fernández
[2025-01-31 18:24] LABS: Chlamydia trachomatis PCR Negative (Not Detect); Neisseria Gonorrhoeae DNA PCR Negative (Not Detect); Trichomonas Positive (Negative)
== END 2025-01-29 10:50 | disposition home or self-care (01) | DRG 547 ==
LOC: SERX 12:10 → SERHOLD 12:55 → S3SX 01-28 07:06 → S2EX 01-28 07:08 → S3SX 01-28 07:08
PROVIDERS: Nurse Practitioner Family; Obstetrics & Gynecology; Admitting Provider Obstetrics & Gynecology; Emergency Provider Emergency Medicine; Visit Provider Specialist
PROC: 10T24ZZ Resection of Products of Conception, Ectopic, Percutaneous Endoscopic Approach (ICD-10-PCS; CPT 59150; principal; 2025-01-27 14:00)
DX: O00.80 Other ectopic pregnancy without intrauterine pregnancy (principal); J18.9 Pneumonia, unspecified organism; J91.8 Pleural effusion in other conditions classified elsewhere; Z87.891 Personal history of nicotine dependence; N13.2 Hydronephrosis with renal and ureteral calculous obstruction
CPT/HCPCS: 36415; 74176; 76801; 76817; 80053; 80307; 81001; 81002; 83690; 84702; 84703; 85025; 86850; 86900; 86901; 87040; 87077; 87186; 87491; 87591; 87661; 96361; 96365; 96375; A4217; A4649; G0378; J0131; J0689; J0690; J1100; J1171; J1885; J2250; J2371; J2543; J2704; J2765; J3010; J3490; J7030; J7042; Q0162; A9270